=== PATIENT | male | born 1950 | race Caucasian/White ===

== ENCOUNTER 2016-09-03 14:43 | Emergency (ER) | payer MEDICARE ==
[~2016-09-03] VITALS: Wt 59.2 kg
[2016-09-03 15:30] VITALS: BP 139/89; PULSE 60; RESP 20; TEMP 98
--- NOTE | 2016-09-03 15:37 | ERA ---
ER Documentation Chief Complaint Date/Time DATE: 09/03/16 TIME: 15:37 Chief Complaint Headache HPI The patient is a 66-year-old male, presenting to the ER because of dizziness that began 2 days ago that resolved by itself, left occipital headache that began yesterday that improved by itself. The only complains of left occipital pressure 1/10 today. He denies similar symptoms previously, complains of worsening symptoms with cough and associated decrease right-sided peripheral vision. He denies similar symptoms previously, denies diplopia, blurred vision , facial pain, neck pain, chest pain, dyspnea, abdominal pain, vomiting, dysuria. he does not smoke, drink Past medical history: Depression, insomnia Past surgical history: Tonsillectomy ROS All systems reviewed and are negative except as per history of present illness. Medications Home Meds Reported Medications Paroxetine Hcl* (Paxil*) 40 Mg Tablet, 40 MG PO DAILY, TAB 09/03/16 Zolpidem Tartrate* (Ambien*) 5 Mg Tablet, 12.5 MG PO QHS Y for INSOMNIA, #30 TAB 09/03/16 Allergies Allergies: Coded Allergies: No Known Allergy (Unverified , 09/03/16) PMhx/Soc Medical and Surgical Hx: pt denies Medical Hx, pt denies Surgical Hx History of Surgery: Yes (tonsillectomy) Anesthesia Reaction: No Hx Neurological Disorder: No Hx Respiratory Disorders: No Hx Cardiac Disorders: No Hx Psychiatric Problems: No Hx Miscellaneous Medical Probl: No Hx Alcohol Use: No Hx Substance Use: No Hx Tobacco Use: No Smoking Status: Never smoker Physical Exam Vitals Vital Signs Date Time Temp Pulse Resp B/P Pulse Ox O2 Delivery O2 Flow Rate FiO2 09/03/16 15:30 98.0 60 20 139/89 97 09/03/16 14:47 98.8 62 20 152/112 97 Physical Exam Const: No acute distress. Head: Atraumatic. Eyes: Normal Conjunctiva. ENT: Normal External Ears, Nose and Mouth. Neck: Full range of motion. No meningismus. Resp: Clear to auscultation bilaterally. Cardio: Regular rate and rhythm, no murmurs. Abd: Soft, non distended, normal bowel sounds, non tender. Skin: No petechiae or rashes. Back: No midline or flank tenderness. Ext: No cyanosis, or edema. Neur: Awake and alert. No focal deficit. Decreased right-sided, superior and inferior peripheral vision Psych: Normal Mood and Affect. Procedures/MDM [place] [id number] Radiology Main Line: [phone] DIAGNOSTIC IMAGING REPORT Patient: CHARLIE RODRIGUEZ : 1950 Age: 66 Sex: M MR #: [id number] DOS: 09/03/16 1545 Ordering MD: MONIKA LEON MD Location: E/R Room/Bed: PROCEDURE: CT Brain without contrast. CLINICAL INDICATION: 3-day headaches TECHNIQUE: A CT of the brain was performed on a [employer] single slice CT scanner utilizing axial imaging from the skull base through the vertex without IV contrast. Multiplanar reformatted images were made. Images were reviewed on a PACS workstation. Radiation dose not available on single slice CT scanner One of the following 3 dose reduction techniques were used: Automated exposure control; adjustment of the mA and/or kV according to patient size; or use of iterative reconstruction technique. COMPARISON: None available FINDINGS: There is no intracranial hemorrhage, mass effect, or midline shift. No extra- axial fluid collection is seen. The ventricles and sulci are age appropriate. Mild diffuse volume loss is present. Wedge-shaped area of decreased attenuation is present in the left occipital lobe which extends to the peripheral cortex involves the medial calcarine cortex and extends to the left atrium of the lateral ventricle. Cortical hyperintensity is noted and recommend brain MRI with both diffusion as well as contrast to evaluate for any potential underlying etiologies. Mild sulcal effacement is noted in the left occipital lobe without midline shift or herniation. Minimal vascular calcifications are present of the bilateral intracranial internal carotid arteries. Mild decreased attenuation is present in the bilateral centrum semiovale and periventricular white matter compatible mild chronic microvascular ischemic disease. The visualized scalp and calvarium are normal. The bilateral orbits are normal. The bilateral paranasal sinuses, mastoid air cells and middle ear cavities are clear. IMPRESSION: 1. Acute to subacute left occipital lobe non hemorrhagic infarct. Recommend brain MRI with diffusion and contrast to further evaluate. 2. Left occipital sulcal effacement without midline shift or herniation. 3. Mild chronic microvascular ischemic disease and mild diffuse volume loss. 4. Minimal atherosclerotic vascular disease. A call report was made to CAROLYN Tillman at 09/03/2016 5:32:48 PM following the completion of the examination by the undersigned. RPTAT: HDC .Rolanda Patel MD, MD Date Time Electronically viewed and signed by .Rolanda Patel MD, MD on 09/03/2016 17: 33 .C/ CC: MONIKA LEON MD MEDICAL MAKING DECISION: The patient is a 66-year-old male, presenting with acute to subacute stroke. He refused all the blood tests and MRI with contrast of the brain and admission. The patient signed out AGAINST MEDICAL ADVICE. Risks, benefits, alternatives were explained to the patient. Risks include but not limited to and permanent disability Departure Diagnosis: Primary Impression: Acute ischemic stroke Condition: Stable Comments The patient signed out AGAINST MEDICAL ADVICE. Risks, benefits, alternatives were explained to the patient. Risks include but not limited to and permanent disability. He is advised to return immediately if he changes his mind. I even have the hemodialysis charge nurse convincing him to stay; however he still did not want to stay for further workup and admission The patient's blood pressure was elevated (>120/80) but appears stable without evidence of hypertension emergency or urgency. The patient was counseled about the risks of hypertension and urged to pursue outpatient monitoring and therapy within a week with their primary care physician. MONIKA LEON MD Sep 03, 2016 15:37
[2016-09-03] MEDS ORDERED: ZOLP5TAB PO (16:41)
[2016-09-03] MEDS ORDERED: PARO40TA48 PO (16:42)
--- NOTE | 2016-09-03 17:33 | RADRPT ---
PROCEDURE: CT Brain without contrast. CLINICAL INDICATION: 3-day headaches TECHNIQUE: A CT of the brain was performed on a GE single slice CT scanner utilizing axial imaging from the skull base through the vertex without IV contrast. Multiplanar reformatted images were ma de. Images were reviewed on a PACS workstation. Radiation dose not available on single slice CT sca nner One of the following 3 dose reduction techniques were used: Automated exposure control; adjustment of the mA and/or kV according to patient size; or use of iterative reconstruction technique. COMPARISON: None available FINDINGS: There is no intracranial hemorrhage, mass effect, or midline shift. No extra-axial fluid collection is seen. The ventricles and sulci are age appropriate. Mild diffuse volume loss is present. Wedge -shaped area of decreased attenuation is present in the left occipital lobe which extends to the per ipheral cortex involves the medial calcarine cortex and extends to the left atrium of the lateral ve ntricle. Cortical hyperintensity is noted and recommend brain MRI with both diffusion as well as co ntrast to evaluate for any potential underlying etiologies. Mild sulcal effacement is noted in the l eft occipital lobe without midline shift or herniation. Minimal vascular calcifications are present of the bilateral intracranial internal carotid arteries. Mild decreased attenuation is present in t he bilateral centrum semiovale and periventricular white matter compatible mild chronic microvascula r ischemic disease. The visualized scalp and calvarium are normal. The bilateral orbits are normal. The bilateral para nasal sinuses, mastoid air cells and middle ear cavities are clear. IMPRESSION: 1. Acute to subacute left occipital lobe non hemorrhagic infarct. Recommend brain MRI with diffusi on and contrast to further evaluate. 2. Left occipital sulcal effacement without midline shift or herniation. 3. Mild chronic microvascular ischemic disease and mild diffuse volume loss. 4. Minimal atherosclerotic vascular disease. A call report was made to CAROLYN Tillman at 09/03/2016 5:32:48 PM following the completion of the exa mination by the undersigned. RPTAT: HDC .Rolanda Patel MD, Date Time Electronically viewed and signed by .Rolanda Patel MD, on 09/03/2016 17:33 .C/
== END 2016-09-03 17:59 | disposition left against medical advice (07) ==
LOC: E/R 14:43
DX: I63.9 Cerebral infarction, unspecified (principal); R40.2142 Coma scale, eyes open, spontaneous, at arrival to emergency department; R40.2252 Coma scale, best verbal response, oriented, at arrival to emergency department; R40.2362 Coma scale, best motor response, obeys commands, at arrival to emergency department
CPT/HCPCS: 70450

== ENCOUNTER 2016-09-05 15:34 | Emergency (ER) | payer MEDICARE ==
[~2016-09-05] VITALS: Wt 58.9 kg
[~2016-09-05 15:34] MED LIST: PARO40TA48 PO; ZOLP5TAB PO
[2016-09-05 16:58] VITALS: BP 141/90; PULSE 51; RESP 16
--- NOTE | 2016-09-05 17:42 | ERD ---
ER Documentation Chief Complaint Date/Time DATE: 09/05/16 TIME: 17:41 Chief Complaint HERE FOR RECHECK AFTER AMA 2 DAYS AGO FOR R/O CVA. NO NEW SYMPTOMS HPI 66-year-old male presenting for a recheck after he had a stroke 2 days ago. He was in the ER 2 days ago and diagnosed with a left occipital acute versus subacute stroke with complaints of left occipital headache and right-sided peripheral vision loss. He states he had personal issues to take care of and signed out AMA 2 days ago. Today he is coming back requesting an MRI after he was convinced by friends and family to have the test done. He denies any new focal neurologic deficits. He states that he has some colors in his vision that are returning in his right peripheral vision that he did not have 2 days ago. His headache has completely resolved. He does not complain of dizziness or diplopia. He has an appointment scheduled with his primary care doctor tomorrow. ROS All systems reviewed and are negative except as per history of present illness. Medications Home Meds Active Scripts Aspirin* (Aspirin*) 325 Mg Tablet, 325 MG PO DAILY, #30 TAB Prov:TIKA WESTBROOK MD 09/05/16 Reported Medications Paroxetine Hcl* (Paxil*) 40 Mg Tablet, 40 MG PO DAILY, TAB 09/03/16 Zolpidem Tartrate* (Ambien*) 5 Mg Tablet, 12.5 MG PO QHS Y for INSOMNIA, #30 TAB 09/03/16 Allergies Allergies: Coded Allergies: No Known Allergy (Unverified , 09/05/16) PMhx/Soc History of Surgery: Yes (tonsillectomy) Anesthesia Reaction: No Hx Neurological Disorder: No (CVA) Hx Respiratory Disorders: No Hx Cardiac Disorders: No Hx Psychiatric Problems: No Hx Miscellaneous Medical Probl: No Hx Alcohol Use: No Hx Substance Use: No Hx Tobacco Use: No Smoking Status: Never smoker FmHx Family History: other (Father had a stroke), No diabetes Physical Exam Vitals Vital Signs Date Time Temp Pulse Resp B/P Pulse Ox O2 Delivery O2 Flow Rate FiO2 09/05/16 16:58 51 16 141/90 100 Room Air 09/05/16 15:40 98.0 62 20 146/78 96 Physical Exam Const: Well-appearing thin male, no distress, nontoxic Head: Atraumatic Eyes: Normal Conjunctiva, EOMI, Maureen, right peripheral vision deficit ENT: Normal External Ears, Nose and Mouth. Neck: Full range of motion. No meningismus. Resp: Clear to auscultation bilaterally Cardio: Regular rate and rhythm, no murmurs Abd: Soft, non tender, non distended. Normal bowel sounds Skin: No petechiae or rashes Back: No midline or flank tenderness Ext: No cyanosis, or edema Neuro: M/S: Alert and oriented Face: EOMI, face and pharynx with normal sensation and function Motor: Normal strength throughout Sensation: Normal sensation throughout Speech: Normal Cerebel: Normal coordination Normal gait Normal finger to nose Psych: Normal Mood and Affect Results 24 hrs Current Medications Medications (Trade) Dose Ordered Sig/Rashmi Route PRN Reason Start Time Stop Time Status Last Admin Dose Admin Aspirin (Aspirin) 325 mg ONCE ONCE PO 09/05/16 18:00 09/05/16 18:01 09/05/16 17:44 Procedures/MDM Patient is presenting for a follow-up after he had a recent stroke diagnosed 2 days ago. He is hemodynamically stable and has no new neurologic deficits on my exam. I explained to the patient that an MRI would not be useful at this point but would have been helpful at the time he had actual stroke, as that would determine if he needed further intervention at that time. I offered him admission to the hospital today further stroke workup and explained to him that this would be to investigate the etiology of his stroke and to facilitate stroke prevention with the neurology team based on his test results. The patient states he has an appointment with his primary care physician tomorrow morning and would rather follow up with his primary care physician and have the tests done with her. If his primary care doctor states that she wants him to return to the emergency room for those tests, the patient is willing to return tomorrow. However he does not want to be admitted today. I told him that he is at increased risk for recurrent stroke. He states that he understands this and will return to the emergency room if he has any new or worsening symptoms. I recommended he start taking aspirin 325 mg daily. One dose was given here. The patient was discharged with strict return precautions in a stable condition. Departure Diagnosis: Primary Impression: Recent cerebrovascular accident (CVA) Condition: TIKA Jessica MD Sep 05, 2016 17:42
[2016-09-05] MEDS ORDERED: ASPI325T4 PO (17:46)
[2016-09-05] MEDS ORDERED: ASPIRIN 325 MG TAB PO ONE (18:00)
== END 2016-09-05 18:10 | disposition home or self-care (01) ==
LOC: E/R 15:34
DX: I63.9 Cerebral infarction, unspecified (principal); R40.2142 Coma scale, eyes open, spontaneous, at arrival to emergency department; R40.2252 Coma scale, best verbal response, oriented, at arrival to emergency department; R40.2360 Coma scale, best motor response, obeys commands, unspecified time; Z79.82 Long term (current) use of aspirin
CPT/HCPCS: 99283

== ENCOUNTER 2016-09-06 15:58 | Emergency (ER) | payer MEDICARE, OTHER ==
[~2016-09-06] VITALS: Ht 175.3 cm; Wt 59.1 kg
[~2016-09-06 15:58] MED LIST changes: +ASPI325T4 PO
[2016-09-06 16:02] VITALS: Ht 175.3 cm; Wt 59.1 kg
--- NOTE | 2016-09-06 17:20 | ERD ---
ER Documentation Chief Complaint Date/Time DATE: 09/06/16 TIME: 17:10 Chief Complaint WAS SEEN HERE FOR STROKE RECENTLY , STATES WAS CALLED BACK TO DO MORE TESTS HPI Patient is a 66-year-old gentleman who reports TIA symptoms that occurred on Friday. He states they worsened initially on Friday and then resolved over the last 2 days. He says he was seen here yesterday and they tried to admit him but he left AGAINST MEDICAL ADVICE. He came back and was considering being admitted but tells me now he does not want to stay again. He says he cannot stand the idea of being admitted to the hospital and that if we try to admit him he will just leave. I had a long discussion with him about the reason for being admitted for thorough evaluation of his strokelike symptoms. He says he just cannot stay. In regards to his symptoms he said that he had dizziness with some visual loss which he says are now completely resolved. Currently he denies any headache, chest pain, shortness of breath, visual loss, slurred speech, focal weakness, numbness, difficulty ambulating, head trauma, or any other symptoms. He says he will call his primary care doctor tomorrow and follow-up with her for an outpatient workup. ROS All systems reviewed and are negative except as per history of present illness. Medications Home Meds Active Scripts Aspirin* (Aspirin*) 325 Mg Tablet, 325 MG PO DAILY, #30 TAB Prov:TIKA WESTBROOK MD 09/05/16 Reported Medications Paroxetine Hcl* (Paxil*) 40 Mg Tablet, 40 MG PO DAILY, TAB 09/03/16 Zolpidem Tartrate* (Ambien*) 5 Mg Tablet, 12.5 MG PO QHS Y for INSOMNIA, #30 TAB 09/03/16 Allergies Allergies: Coded Allergies: No Known Allergy (Unverified , 09/06/16) PMhx/Soc History of Surgery: Yes (tonsillectomy) Anesthesia Reaction: No Hx Neurological Disorder: No (CVA) Hx Respiratory Disorders: No Hx Cardiac Disorders: No Hx Psychiatric Problems: No Hx Miscellaneous Medical Probl: No Hx Alcohol Use: No Hx Substance Use: No Hx Tobacco Use: No FmHx Family History: No coronary disease Physical Exam Vitals Vital Signs Date Time Temp Pulse Resp B/P Pulse Ox O2 Delivery O2 Flow Rate FiO2 09/06/16 16:02 98.6 56 18 129/94 98 Physical Exam Const: [] Well-developed well-nourished male sitting on the bed in no acute distress Head: Atraumatic normocephalic Eyes: Normal Conjunctiva ENT: Normal External Ears, Nose and Mouth. Neck: Full range of motion..~ No meningismus. Resp: Clear to auscultation bilaterally Cardio: Regular rate and rhythm, no murmurs Abd: Soft, non tender, non distended. Normal bowel sounds Skin: No petechiae or rashes Back: No midline or flank tenderness Ext: No cyanosis, or edema Neur: Awake and alert, oriented 3, GCS of 15, cranial nerves II through XII are intact, finger to nose is intact, strength is 5 out of 5 in both upper and lower extremities, patient has a normal gait, tandem gait patient is a little off however he does not fall Psych: Normal Mood and Affect Procedures/MDM Differential includes TIA versus CVA Once again I had a long discussion with the patient about leaving. I discussed his symptoms and my concern for him having had a stroke. I advised him I was concerned that he might have another stroke which might leave him with more severe deficits which could be more permanent. He stated that he would follow up once again with his primary care physician and that he would call them tomorrow. I advised him that if his symptoms return to call the ambulance and come to the emergency department immediately. He stated that he would. I told him he was welcome to return at any time if he changed his mind and that we would immediately admit him to the hospital for further evaluation. He stated that he would come back. Departure Diagnosis: Primary Impression: Transient ischemic attack (TIA) Transient cerebral ischemia type: unspecified Qualified Code: G45.9 - Transient cerebral ischemia, unspecified type Condition: Good Patient Instructions: T.I.A.: Transient Ischemic Attack Referrals: JASON MANCINI MD patient had symptoms of a tia or a cva Additional Instructions: PLEASE CALL YOUR DOCTOR AND DR MANCINI FOR FIRST AVAILABLE APPOINTMENT FOR FURTHER EVALUATION. TAKE AN ASPIRIN EVERY DAY IN THE MEANTIME. IF YOU DEVELOP ANY OTHER SYMPTOMS, CALL THE AMBULANCE AND RETURN TO THE ER IMMEDIATELY. IF YOU CHANGE YOUR MIND ABOUT BEING ADMITTED, THEN PLEASE RETURN TO THE ER . JONNIE BAEZ Sep 06, 2016 17:19
== END 2016-09-06 17:57 | disposition left against medical advice (07) ==
LOC: E/R 15:58
DX: G45.9 Transient cerebral ischemic attack, unspecified (principal)
CPT/HCPCS: 99282